=== PATIENT | male | born 2000 | race Caucasian/White ===

== ENCOUNTER 2022-02-02 12:00 | Emergency (ER) | payer OTHER ==
[~2022-02-02] VITALS: Ht 185.4 cm; Wt 102.1 kg
[2022-02-02 13:09] VITALS: BP 122/60
[2022-02-02] MEDS ORDERED: IBUP-2070 PO (13:19)
[2022-02-02] MEDS ORDERED: IBUPROFEN 600 MG TABLET PO ONE (13:30)
== END 2022-02-02 14:44 | disposition home or self-care (01) ==
LOC: EDH 12:00
DX: S93.401A Sprain of unspecified ligament of right ankle, initial encounter (principal); W01.0XXA Fall on same level from slipping, tripping and stumbling without subsequent striking against object, initial encounter; Y93.E1 Activity, personal bathing and showering; Y92.091 Bathroom in other non-institutional residence as the place of occurrence of the external cause; Y99.8 Other external cause status
CPT/HCPCS: 73600; 73630